=== PATIENT | female | born 1985 | race Caucasian/White ===

== ENCOUNTER 2018-11-28 00:34 | Emergency (ER) | payer MEDICAID ==
[~2018-11-28] VITALS: Ht 157.5 cm; Wt 78.6 kg
[2018-11-28 01:02] VITALS: Ht 157.5 cm; Wt 78.6 kg
[2018-11-28] MEDS ORDERED: BELLADONNA/PHENOBARBITAL TAB PO STA (02:38)
[2018-11-28] MEDS ORDERED: LIDOCAINE/MYLANTA 40 ML BTL PO STA (02:38)
[2018-11-28] MEDS ORDERED: FAMOTIDINE 20 MG TAB PO STA (02:38)
[2018-11-28] MEDS ORDERED: ONDANSETRON (ODT) 4 MG TAB ODT STA (02:38)
--- NOTE | 2018-11-28 03:35 | ERD ---
ER Documentation Chief Complaint Chief Complaint EPIGASTRIC PAIN WITH N/V X 2 DAYS HPI This is a 33-year-old female with a past medical history of diabetes who is presenting with 2 days of intermittent waxing and waning burning sharp moderate epigastric pain, exacerbated by eating and drinking with episodes of nausea. The patient reports vomiting up her food when attempting to eat over the last 1- 2 days. The patient does not endorse any other abdominal pain or discomfort. She denies any dysuria or hematuria or urgency or frequency. She denies any changes to bowel movements. She has not had any black or bloody or tarry stools. She has not had any constipation or diarrhea. She does not believe she could be . She denies any vaginal discharge or bleeding or burning or pain. She does not believe she could have a sexually transmitted infection. The patient denies feeling sick recently. The patient denies fever or chills. The patient has had no headache or vision changes. The patient does not endorse neck or back pain. The patient denies lightheadedness or dizziness. The patient has had no chest pain or trouble breathing. The patient has had no focal deficits. The patient has had no weakness or numbness or tingling to the face or extremities. ROS All systems reviewed and are negative except as per history of present illness. Medications Home Meds Active Scripts Ondansetron Hcl* (Zofran*) 8 Mg Tablet, 8 MG PO Q6H PRN for NAUSEA AND OR VOMITING, #20 TAB Prov:SAMUEL HAMLIN MD 11/28/18 Famotidine* (Pepcid*) 20 Mg Tablet, 20 MG PO BID for 14 Days, TAB Prov:SAMUEL HAMLIN MD 11/28/18 Allergies Allergies: Coded Allergies: No Known Allergy (Unverified , 12/12/14) PMhx/Soc History of Surgery: Yes () Anesthesia Reaction: No Hx Neurological Disorder: No Hx Respiratory Disorders: No Hx Cardiac Disorders: Yes (Diabetes) Hx Psychiatric Problems: No Hx Miscellaneous Medical Probl: No Hx Alcohol Use: No Hx Substance Use: No FmHx Family History: diabetes Physical Exam Vitals Vital Signs Date Temp Pulse Resp B/P (MAP) Pulse Ox O2 O2 Flow FiO2 Time Delivery Rate 11/28/18 98.2 70 16 126/49 99 Room Air 04:15 (74) 11/28/18 99.6 81 18 175/80 96 01:02 (111) Physical Exam Const: No apparent distress, well-developed, well-nourished Head: Normocephalic, Atraumatic Eyes: Normal Conjunctiva. Extraocular movements intact. Pupils equal, round and reactive to light ENT: Normal External Ears, Nose and Mouth. Neck: Full range of motion. No meningismus. Resp: Clear to auscultation bilaterally, No wheezes, rales or rhonchi Cardio: Regular rate and rhythm. No murmurs, rubs or gallops Abd: Soft, non distended. Mild epigastric tenderness. Normal bowel sounds Skin: No petechiae or rashes Back: No midline tenderness. No CVA tenderness Ext: No cyanosis, or edema Neur: Awake and alert, oriented 4. Cranial nerves intact. No facial droop. Normal strength, sensation and coordination. Psych: Normal Mood and Affect Results 24 hrs Laboratory Tests Test 11/28/18 03:42 POC Beta HCG, Qualitative NEGATIVE Current Medications Medications Dose Sig/Ashley Start Time Status Last (Trade) Ordered Route PRN Stop Time Admin Dose Reason Admin Famotidine 20 mg ONCE STAT 11/28/18 DC 11/28/18 (Pepcid) PO 02:38 02:52 11/28/18 02:40 40 ml ONCE STAT 11/28/18 DC 11/28/18 Miscellaneous PO 02:38 02:52 Medication 11/28/18 02:40 (Gi Cocktail (2)) Belladonna/ 2 tab ONCE STAT 11/28/18 DC 11/28/18 Phenobarbital PO 02:38 02:52 () 11/28/18 02:40 Ondansetron 8 mg ONCE STAT 11/28/18 DC 11/28/18 HCl (Zofran ODT 02:38 02:52 Odt) 11/28/18 02:40 650 mg ONCE ONCE 11/28/18 DC 11/28/18 Acetaminophen PO 04:00 03:45 (Tylenol 11/28/18 04:01 Tab) Procedures/MDM MDM The patient's presentation warrants further investigation. Previous medical records, if available, were reviewed. LABS The patient's laboratory testing was obtained and reviewed. No emergent treatment was required unless described below. HCG: Negative IMAGING US RUQ FINDINGS: The pancreas was not visualized due to overlying bowel gas. No evidence of cholelithiasis gallbladder wall thickening or pericholecystic fluid. Common bile duct normal limits in size maximal transverse diameter 3.46 mm. No evidence of intrahepatic biliary ductal dilation. Liver normal in size maximal sagittal mention 15.01 cm. Liver parenchymal echogenicity is homogeneous without focal lesions. Right kidney normal in size measuring 10.92 cm maximal sagittal mention. Normal right renal parenchymal echogenicity without hydronephrosis, intra renal mass or calculus. IMPRESSION: 1. Unremarkable gallbladder without biliary ductal dilation. 2. Unremarkable liver and right kidney. 3. Nonvisualization of the pancreas due to overlying bowel gas. Electronically viewed and signed by Physician Tej on 11/28/2018 05:09 TREATMENT/DISPOSITION The patient presents with mild epigastric pain and nausea. I do have high suspicion for PUD versus GERD versus gastritis. This has happened in the past. The patient was treated with Pepcid, Zofran and a GI cocktail with some improvement of her symptoms. The patient was technically not febrile, but her temperature was slightly elevated. The patient's symptoms could also potentially be related to gastroenteritis, though her pain is isolated to the epigastrium. The patient does not have any evidence of peritonitis. The patient has not had any hematemesis. She does not endorse any GI bleeding. I have low suspicion for esophageal tear, Adele-Singer tear, Boerhaave syndrome or other viscus perforation. The patient does not have clinical symptoms concerning for mesenteric ischemia or ischemic colitis. The patient does not have any vaginal complaints. I have low suspicion for an STI, PID, TOA, ectopic , ovarian torsion. The patient does not have right upper quadrant tenderness, but gallstones could present with epigastric pain. I did have a right upper quadrant ultrasound completed that did not reveal evidence of gallstones or cholecystitis. I have low suspicion for biliary colic. The patient does not have left upper quadrant tenderness. I have low suspicion for pancreatitis. The patient does not have any right lower quadrant tenderness, or periumbilical tenderness. I have low suspicion for appendicitis. The patient does not have suprapubic tenderness. I have decreased suspicion for cystitis. The patient do es not have any left lower quadrant tenderness, and I have low suspicion for diverticulosis or diverticulitis. The patient does not have any flank tenderness. The patient does not have gross hematuria. I have decreased suspicion for nephrolithiasis or renal colic. The patient does not have any palpable pulsatile mass or severe abdominal pain radiating to the back. I have low suspicion for aortic aneurysm, dissection or rupture. DISCHARGE Upon reevaluation of the patient, symptoms have improved. No emergent diagnoses were identified. At this time, I feel that the patient stable for discharge. The patient was instructed to follow-up with a primary care physician in 1-3 days. The patient will be given strict precautions with which to return to the emergency department. Prescriptions: Cassi Lin The patient's blood pressure was elevated at greater than 120/80 while in the e mergency department. The patient was otherwise stable with no evidence of hypertensive urgency or emergency. The patient does not require admission for blood pressure control. I have discussed with the patient the risks of hypertension. I have instructed the patient to return to the ER for any new or worsening symptoms including chest pain, shortness of breath, headache, blurred vision, confusion, nausea, vomiting or LOC. I have advised the patient to follow up with the primary care physician for outpatient monitoring and treatment for hypertension in 1-3 days. Disclaimer: Inadvertent spelling and grammatical errors are likely due to EHR/dictation software use and do not reflect on the overall quality of patient care. Note that the electronic time recorded on this note does not necessarily reflect the actual time of the patient encounter. Departure Diagnosis: Primary Impression: Epigastric pain Additional Impression: Nausea & vomiting Vomiting type: unspecified Vomiting Intractability: non-intractable Qualified Codes: R11.2 - Nausea with vomiting, unspecified Condition: Stable Patient Instructions: Epigastric Pain (Uncertain Cause), Nausea and Vomiting- Adult Additional Instructions: Thank you for for coming to [facility] for your care today. Please ask your nurse or provider if you have questions about your care today and do not leave until all your questions have been answered. Please use any medications given as directed and follow-up with your doctor (or the doctor you were referred to) in the next 1-3 days. If you do not have a primary care doctor you may follow up at the [facility] or [facility] (listed below). You may also use motrin and tylenol as needed for fever and/or pain unless instructed otherwise by your provider or nurse. Indications for more urgent follow-up have been discussed, but you may return to the Emergency Department at ANY time for any worrisome or worsening symptoms. If you have abdominal pain, please know that no test or exam you received is perfect and you should follow up within 8 hours for continued pain. If you had any imaging studies today, such as an X-Ray or CT Scan, these studies will be reviewed later by a radiologist. You will be called if there are important findings that were not identified today, so make sure the contact in formation you provided at registration is correct. If you received any narcotic pain control medicine today, such as Vicodin, M orphine or Dilaudid, your coordination and judgment may be affected for a number of hours. Please do not drive or operate heavy machinery, and you may want someone to assist you at home. If you were given a prescription for narcotic medication, be aware that it is very addictive- use sparingly and only if necessary. PLEASE SEEK FURTHER EVALUATION AND MANAGEMENT AT YOUR DOCTORS OFFICE WITHIN THE NEXT 1-3 DAYS. IT IS YOUR RESPONSIBILITY TO MAKE AN APPOINTMENT FOR FOLOW-UP CARE. IF YOU HAVE A PRIMARY DOCTOR, PLEASE CALL THEIR OFFICE TO SCHEDULE AN APPOINTMENT FOR FOLLOW UP. IF YOU DO NOT HAVE A PRIMARY DOCTOR YOU CAN CALL OUR PHYSICIAN REFERRAL HOTLINE AT IF YOU CAN NOT AFFORD TO SEE A PHYSICIAN YOU CAN CHOSE FROM THE FOLLOWING [facility] CLINICS: [facility] [address] [facility]. [facility] [address] [address] [facility] [facility] [address] [facility] [address] [facility]. [facility]. [address] SAMUEL DURANT MD Nov 28, 2018 03:35
[2018-11-28] MEDS ORDERED: ONDA8TAB9 PO (03:36)
[2018-11-28] MEDS ORDERED: FAMO-96 PO (03:36)
[2018-11-28] MEDS ORDERED: ACETAMINOPHEN 325 MG TAB PO ONE (04:00)
[2018-11-28 05:35] VITALS: BP 126/65; PULSE 71; RESP 15
== END 2018-11-28 05:35 | disposition home or self-care (01) ==
LOC: FTE 00:34 → E/R 05:35
DX: R10.13 Epigastric pain (principal); R11.2 Nausea with vomiting, unspecified; E11.9 Type 2 diabetes mellitus without complications
CPT/HCPCS: 76705; 81025; Z7502; Z7610

== ENCOUNTER 2018-12-22 10:59 | Emergency (ER) | payer MEDICAID ==
[~2018-12-22] VITALS: Ht 162.6 cm; Wt 76.7 kg
[~2018-12-22 10:59] MED LIST: FAMO-96 PO; ONDA8TAB9 PO
[2018-12-22 11:06] VITALS: BP 139/65; PULSE 67; RESP 18; Ht 162.6 cm; Wt 76.7 kg
[2018-12-22] MEDS ORDERED: LIDOCAINE/MYLANTA 40 ML BTL PO ONE (12:30)
[2018-12-22] MEDS ORDERED: INSULIN LISPRO 100 UNIT/ML VIAL SC STA (13:38)
[2018-12-22] MEDS ORDERED: FAMO-96 PO (15:25)
--- NOTE | 2018-12-22 15:34 | ERD ---
ER Documentation Chief Complaint Chief Complaint AP X 1 DAY EPIGASTRIC X 1 DAY 04/13 HPI Patient is a 33-year-old female with past medical history of DM type II, presents the ER for concerns of epigastric pain times 1 day. She describes the pain to be burning in nature. She denies any nausea, vomiting, abdominal pain or diarrhea. She states she does also have back pain. She describes her pain to be generalized throughout her back. She denies any falls or trauma. She denies any associated saddle anesthesia, urine incontinence or stool incontinence. Patient denies any chest pain or shortness of breath. Patient states her symptoms started yesterday after eating in and out hamburger. No recent travel. Patient denies any fevers or chills. Patient denies any urinary symptoms. Patient states she was given a medication when she had similar symptoms here last month and those medications did help. Upon chart review it was noted the patient was given a GI cocktail. ROS All systems reviewed and are negative except as per history of present illness. Medications Home Meds Active Scripts Famotidine* (Pepcid*) 20 Mg Tablet, 20 MG PO BID for 30 Days, TAB Prov:JACOB COTTO PA-C 12/22/18 Ondansetron Hcl* (Zofran*) 8 Mg Tablet, 8 MG PO Q6H PRN for NAUSEA AND OR VOMITING, #20 TAB Prov:SAMUEL HAMLIN MD 11/28/18 Famotidine* (Pepcid*) 20 Mg Tablet, 20 MG PO BID for 14 Days, TAB Prov:SAMUEL HAMLIN MD 11/28/18 Allergies Allergies: Coded Allergies: No Known Allergy (Unverified , 12/22/18) PMhx/Soc History of Surgery: Yes () Anesthesia Reaction: No Hx Neurological Disorder: No Hx Respiratory Disorders: No Hx Cardiac Disorders: Yes (Diabetes) Hx Psychiatric Problems: No Hx Miscellaneous Medical Probl: No Hx Alcohol Use: No Hx Substance Use: No Hx Tobacco Use: No Smoking Status: Never smoker FmHx Family History: diabetes Physical Exam Vitals Vital Signs Date Temp Pulse Resp B/P (MAP) Pulse Ox O2 O2 Flow FiO2 Time Delivery Rate 12/22/18 98.4 67 18 139/65 98 11:06 (89) Physical Exam GENERAL: Well-developed, well-nourished female. Appears in no acute distress. HEAD: Normocephalic, atraumatic. EYES: Pupils are equally reactive bilaterally. EOMs grossly intact. No conjunctival erythema. ENT: Moist mucous membranes. No uvula deviation. No kissing tonsils. NECK: Supple. No meningismus. Normal range of motion of the neck. LUNG: Clear to auscultation bilaterally. No rhonchi, wheezing, rales or coarse breath sounds. HEART: Regular rate and rhythm. No murmurs, rubs or gallops. ABDOMEN: No scars, ecchymosis or rashes noted. Soft and nondistended. Positive bowel sounds in all four quadrants. No rebound tenderness, no guarding. (-) McBurney's point tenderness. No CVA tenderness. EXTREMITIES: Equal pulses bilaterally. No peripheral clubbing, cyanosis or edema. No unilateral leg swelling. NEUROLOGIC: Alert and oriented. Moving all four extremities without any difficulty. Normal speech. Steady gait. SKIN: Normal color. Warm and dry. No rashes or lesions. Result Diagram: 12/22/18 1232 12/22/18 1232 Results 24 hrs Laboratory Tests Test 12/22/18 12:32 12/22/18 12:43 12/22/18 12:46 12/22/18 14:02 White Blood Count 9.7 10^3/ul Red Blood Count 4.76 10^6/ul Hemoglobin 14.8 g/dl Hematocrit 41.5 % Mean Corpuscular 87.2 fl Volume Mean Corpuscular 31.1 pg Hemoglobin Mean Corpuscular 35.7 g/dl Hemoglobin Concent Red Cell 11.9 % Distribution Width Platelet Count 249 10^3/UL Mean Platelet 9.8 fl Volume Immature 0.400 % Granulocytes % Neutrophils % 61.4 % Lymphocytes % 31.6 % Monocytes % 4.8 % Eosinophils % 1.1 % Basophils % 0.7 % Nucleated Red Blood 0.0 /100WBC Cells % Immature 0.040 10^3/ul Granulocytes # Neutrophils # 5.9 10^3/ul Lymphocytes # 3.1 10^3/ul Monocytes # 0.5 10^3/ul Eosinophils # 0.1 10^3/ul Basophils # 0.1 10^3/ul Nucleated Red Blood 0.0 10^3/ul Cells # Sodium Level 136 mmol/L Potassium Level 4.3 mmol/L Chloride Level 96 mmol/L Carbon Dioxide 29 mmol/L Level Anion Gap 11 Blood Urea Nitrogen 7 mg/dl Creatinine 0.40 mg/dl Est Glomerular > 60 mL/min Filtrat Rate mL/min Glucose Level 329 mg/dl Calcium Level 9.9 mg/dl Total Bilirubin 1.2 mg/dl Direct Bilirubin 0.00 mg/dl Indirect Bilirubin 1.2 mg/dl Aspartate Amino 76 IU/L Transf (AST/SGOT) Alanine 187 IU/L Aminotransferase (A LT/SGPT) Alkaline 205 IU/L Phosphatase Total Protein 7.5 g/dl Albumin 4.0 g/dl Globulin 3.50 g/dl Albumin/Globulin 1.14 Ratio Lipase 130 U/L Bedside Urine pH 7.0 (LAB) Bedside Urine Negative Protein (LAB) Bedside Urine 0.50% Glucose (UA) Bedside Urine Negative Ketones (LAB) Bedside Urine Blood Negative Bedside Urine Negative Nitrite (LAB) Bedside Urine Negative Leukocyte Esterase (L POC Beta HCG, NEGATIVE Qualitative Bedside Glucose 270 mg/dL Current Medications Medications Dose Sig/Ashley Start Time Status Last (Trade) Ordered Route PRN Stop Time Admin Dose Reason Admin 40 ml ONCE ONCE 12/22/18 DC 12/22/18 Miscellaneous PO 12:30 12:31 Medication 12/22/18 12:31 (Gi Cocktail (2)) Insulin 6 unit ONCE STAT 12/22/18 DC Human SC 13:38 Lispro 12/22/18 14:10 (Humalog) Procedures/MDM ED COURSE: The patient was stable throughout ED course. I kept the patient and/or family informed of laboratory and diagnostic imaging results throughout the ED course. DIAGNOSTIC IMAGING: Read by radiologist. DIAGNOSTIC IMAGING REPORT Patient: COREY GALLOWAY : 1985 Age: 33 Sex: F MR #: [id number] DOS: 12/22/18 1302 Ordering MD: JACOB COTTO PA-C Location: [facility] Room/Bed: PROCEDURE: US Abdomen. CLINICAL INDICATION: Abdominal Pain TECHNIQUE: Multiple real-time images were acquired of the patient's abdomen and retroperitoneum utilizing a high resolution transducer. COMPARISON: Abdominal ultrasound November 28, 2018 FINDINGS: The liver is of normal size and contour with no mass or intrahepatic ductal dilatation. There is increased echogenicity of the liver compatible with fatty infiltration. Portal and hepatic vein are patent on color flow Doppler imaging. The common bile duct measures 2.9 millimeter in transverse diameter.No gallstones are identified. Gallbladder wall is not thickened and no abnormal pericholecystic fluid collection is seen. No sonographic Myers's sign was elicited during this exam. There is no ascites. The pancreas is normal with no mass or ductal dilatation. The right kidney measures 11.4 cm in length. No hydronephrosis, calculus or mass is present.. There is no evidence of abdominal aortic aneurysm or caval thrombosis. IMPRESSION: No evidence of cholelithiasis, cholecystitis or biliary obstruction. Fatty liver. .Gerber Hunter MD, MD Date Time Electronically viewed and signed by .Gerber Hunter MD, MD on 12/22/2018 14:57 .A/ CC: JACOB COTTO PA-C [id number] PROCEDURES: None. MEDICATIONS GIVEN: GI cocktail Patient tolerated medication well with no adverse reactions. Patient reported improvement in pain. MEDICAL DECISION MAKING: This is a 33-year-old female presents the ER for concerns of epigastric pain times 1 day. Patient states symptoms started after she eating in and out hamburger last night. Vital signs were reviewed. Patient is afebrile. Blood work was obtained. CBC showed no evidence of systemic infection or severe anemia. CMP showed no evidence of electrolyte abnormalities, severe acidosis, alkalosis, renal failure. Glucose was 229 however bicarb was within normal limits. UA showed no ketones. Low suspicion for DKA. Patient's AST was noted to be 76, ALT 184, alk phos of 205. Lipase showed no evidence of acute pancreatitis. UA showed no evidence of acute infection or hematuria. UA showed positive glucose however no leukocyte esterase or nitrates were noted. Urine test was negative. Gallbladder ultrasound was unremarkable. See formal report above. Upon reexamination, patient did report improvement symptoms after receiving GI cocktail. Patient's glucose was rechecked and noted to be 270. Patient was advised on dietary changes. Patient was advised to monitor glucose levels strictly instructed DM medication compliance advised. Exercise advised. At this time, patient's presentation is most consistent with epigastric pain, hyperglycemia, elevated LFTs. Differential diagnosis included was not limited acute coronary syndrome, AAA, mesenteric ischemia, lower lobe pneumonia, DKA, bowel perforation, cholecystitis, choledocholithiasis, ascending cholangitis, hepatic abscess, pancreatitis, PUD, gastritis, GERD, splenic rupture, diverticulitis, UTI, pyelonephritis, nephrolithiasis, appendicitis, constipation, , ectopic , PID, ovarian torsion or tubo-ovarian abscess. Patient was nontoxic, [id number] prior to discharge. PRESCRIPTIONS: Pepcid DISCHARGE: At this time, patient is stable for discharge and outpatient management. I have instructed the patient to follow-up with his/her primary care physician in 1-2 days. I have instructed the patient to promptly return to the ER at any time for any new or worsening symptoms including increased pain, nausea, vomiting, diarrhea, fever, weakness or LOC. The patient and/or family expressed understanding of and agreement with this plan. All questions were answered. Home care instructions were provided. Disclaimer: Inadvertent spelling and grammatical errors are likely due to EHR /dictation software use and do not reflect on the overall quality of patient care. Also, please note that the electronic time recorded on this note does not necessarily reflect the actual time of the patient encounter. Departure Diagnosis: Primary Impression: Epigastric pain Additional Impressions: Hyperglycemia Elevated LFTs Condition: Fair Patient Instructions: Epigastric Pain (Uncertain Cause) Referrals: [facility] YOU HAVE RECEIVED A MEDICAL SCREENING EXAM AND THE RESULTS INDICATE THAT YOU DO NOT HAVE A CONDITION THAT REQUIRES URGENT TREATMENT IN THE EMERGENCY DEPARTMENT. FURTHER EVALUATION AND TREATMENT OF YOUR CONDITION CAN WAIT UNTIL YOU ARE SEEN IN YOUR DOCTORS OFFICE WITHIN THE NEXT 1-2 DAYS. IT IS YOUR RESPONSIBILITY TO MAKE AN APPOINTMENT FOR FOLOW-UP CARE. IF YOU HAVE A PRIMARY DOCTOR --you should call your primary doctor and schedule an appointment IF YOU DO NOT HAVE A PRIMARY DOCTOR YOU CAN CALL OUR PHYSICIAN REFERRAL HOTLINE AT IF YOU CAN NOT AFFORD TO SEE A PHYSICIAN YOU CAN CHOSE FROM THE FOLLOWING [facility] CLINICS [facility] [address] [facility]. [facility] [address] [facility] [facility] [address] [facility] [facility] [address] [facility] [facility] [address] [facility]. [facility] [address] [facility]. [facility] YOU HAVE RECEIVED A MEDICAL SCREENING EXAM AND THE RESULTS INDICATE THAT YOU DO NOT HAVE A CONDITION THAT REQUIRES URGENT TREATMENT IN THE EMERGENCY DEPARTMENT. FURTHER EVALUATION AND TREATMENT OF YOUR CONDITION CAN WAIT UNTIL YOU ARE SEEN IN YOUR DOCTORS OFFICE WITHIN THE NEXT 1-2 DAYS. IT IS YOUR RESPONSIBILITY TO MAKE AN APPOINTMENT FOR FOLOW-UP CARE. IF YOU HAVE A PRIMARY DOCTOR --you should call your primary doctor and schedule and appointment IF YOU DO NOT HAVE A PRIMARY DOCTOR YOU CAN CALL OUR PHYSICIAN REFERRAL HOTLINE AT . IF YOU CAN NOT AFFORD TO SEE A PHYSICIAN YOU CAN CHOSE FROM THE FOLLOWING [facility] INSTITUTIONS: [facility] [address] [place] [address] [facility] [address] [place] [address] [facility] [address] [place] [address] [facility]ENT [facility]SPECIALTIES Additional Instructions: Call your primary care doctor TOMORROW for an appointment during the next 1-2 days.See the doctor sooner or return here if your condition worsens before your appointment time. JACOB COTTO PA-C Dec 22, 2018 15:34
== END 2018-12-22 15:45 | disposition home or self-care (01) ==
LOC: FTE 10:59
DX: R10.13 Epigastric pain (principal); E11.65 Type 2 diabetes mellitus with hyperglycemia; R94.5 Abnormal results of liver function studies
CPT/HCPCS: 36415; 76705; 80053; 81003; 81025; 82962; 83690; 85025; Z7502; Z7610; J1815

== ENCOUNTER 2018-12-31 03:02 | Emergency (ER) | payer MEDICAID ==
[~2018-12-31] VITALS: Ht 154.9 cm; Wt 76.0 kg
[2018-12-31 03:12] VITALS: BP 122/102; PULSE 68; RESP 18; Ht 154.9 cm; Wt 76.0 kg
[2018-12-31] MEDS ORDERED: LIDOCAINE/MYLANTA 40 ML BTL PO STA (03:16)
[2018-12-31] MEDS ORDERED: FAMOTIDINE 20 MG TAB PO STA (03:16)
--- NOTE | 2018-12-31 04:45 | ERD ---
ER Documentation Chief Complaint Chief Complaint awoken by epigastric pain radiating to back 0100, no n/vd, hx same unk caus HPI This is a 33-year-old female presents for epigastric pain, began at about 1 AM this morning. Describes as burning. The patient was seen here recently for the same pain, on December 22, she had an ultrasound that showed no evidence of gallstones, her LFTs were noted to be elevated, and she was noted to have evidence of fatty liver. She also has a history of diabetes. There are no alleviating or aggravating factors. She has not had a fever. ROS All systems reviewed and are negative except as per history of present illness. Medications Home Meds Active Scripts Famotidine* (Pepcid*) 20 Mg Tablet, 20 MG PO BID for 30 Days, TAB Prov:JACOB COTTO PA-C 12/22/18 Ondansetron Hcl* (Zofran*) 8 Mg Tablet, 8 MG PO Q6H PRN for NAUSEA AND OR VOMITING, #20 TAB Prov:SAMUEL HAMLIN MD 11/28/18 Famotidine* (Pepcid*) 20 Mg Tablet, 20 MG PO BID for 14 Days, TAB Prov:SAMUEL HAMLIN MD 11/28/18 Allergies Allergies: Coded Allergies: No Known Allergy (Unverified , 12/22/18) PMhx/Soc History of Surgery: Yes () Anesthesia Reaction: No Hx Neurological Disorder: No Hx Respiratory Disorders: No Hx Cardiac Disorders: Yes (Diabetes) Hx Psychiatric Problems: No Hx Miscellaneous Medical Probl: No Hx Alcohol Use: No Hx Substance Use: No Hx Tobacco Use: No Smoking Status: Never smoker Physical Exam Vitals Vital Signs Date Temp Pulse Resp B/P (MAP) Pulse Ox O2 O2 Flow FiO2 Time Delivery Rate 12/31/18 98.3 68 18 122/102 100 03:12 (109) Physical Exam Const: No acute distress, well-appearing well-nourished well-hydrated Head: Atraumatic Eyes: Normal Conjunctiva ENT: Normal External Ears, Nose and Mouth. Neck: Full range of motion. No meningismus. Resp: Clear to auscultation bilaterally Cardio: Regular rate and rhythm, no murmurs Abd: Soft, there is mild epigastric tenderness, no rebound or guarding, non distended. Normal bowel sounds Skin: No petechiae or rashes Back: No midline or flank tenderness Ext: No cyanosis, or edema Neur: Awake and alert Psych: Normal Mood and Affect Result Diagram: 12/31/188 12/31/18 0328 Results 24 hrs Laboratory Tests Test 12/31/18 03:19 12/31/18 03:21 12/31/18 03:22 12/31/18 03:28 Bedside Glucose 327 mg/dL Bedside Urine pH 8.0 (LAB) Bedside Urine Negative Protein (LAB) Bedside Urine 0.50% Glucose (UA) Bedside Urine Negative Ketones (LAB) Bedside Urine Negative Blood Bedside Urine Negative Nitrite (LAB) Bedside Urine Negative Leukocyte Esterase (L POC Beta HCG, NEGATIVE Qualitative White Blood Count 9.4 10^3/ul Red Blood Count 4.58 10^6/ul Hemoglobin 14.2 g/dl Hematocrit 39.5 % Mean Corpuscular 86.2 fl Volume Mean Corpuscular 31.0 pg Hemoglobin Mean Corpuscular 35.9 g/dl Hemoglobin Concent Red Cell 12.3 % Distribution Width Platelet Count 183 10^3/UL Mean Platelet 10.0 fl Volume Immature 0.500 % Granulocytes % Neutrophils % 46.9 % Lymphocytes % 42.9 % Monocytes % 7.0 % Eosinophils % 2.0 % Basophils % 0.7 % Nucleated Red 0.0 /100WBC Blood Cells % Immature 0.050 10^3/ul Granulocytes # Neutrophils # 4.4 10^3/ul Lymphocytes # 4.0 10^3/ul Monocytes # 0.7 10^3/ul Eosinophils # 0.2 10^3/ul Basophils # 0.1 10^3/ul Nucleated Red 0.0 10^3/ul Blood Cells # Urine Color STRAW Urine Clarity CLEAR Urine pH 8.0 Urine Specific 1.022 [place] Urine Ketones TRACE mg/dL Urine Nitrite NEGATIVE mg/dL Urine Bilirubin NEGATIVE mg/dL Urine Urobilinogen NEGATIVE mg/dL Urine Leukocyte NEGATIVE Anila/ul Esterase Urine Hemoglobin NEGATIVE mg/dL Urine Glucose 3+ mg/dL Urine Total NEGATIVE mg/dl Protein Sodium Level 136 mmol/L Potassium Level 3.8 mmol/L Chloride Level 98 mmol/L Carbon Dioxide 29 mmol/L Level Anion Gap 9 Blood Urea 8 mg/dl Nitrogen Creatinine 0.45 mg/dl Est Glomerular > 60 mL/min Filtrat Rate mL/min Glucose Level 315 mg/dl Calcium Level 9.9 mg/dl Total Bilirubin 1.1 mg/dl Direct Bilirubin 0.00 mg/dl Indirect Bilirubin 1.1 mg/dl Aspartate Amino 90 IU/L Transf (AST/SGOT) Alanine 163 IU/L Aminotransferase ( ALT/SGPT) Alkaline 214 IU/L Phosphatase Total Protein 7.2 g/dl Albumin 3.9 g/dl Globulin 3.30 g/dl Albumin/Globulin 1.18 Ratio Lipase 240 U/L Current Medications Medications Dose Sig/Ashley Start Time Status Last (Trade) Ordered Route PRN Stop Time Admin Dose Reason Admin Famotidine 20 mg ONCE STAT 12/31/18 DC 12/31/18 (Pepcid) PO 03:16 03:35 12/31/18 03:18 40 ml ONCE STAT 12/31/18 DC 12/31/18 Miscellaneous PO 03:16 03:35 Medication 12/31/18 03:18 (Gi Cocktail (2)) Procedures/MDM This 33-year-old female presents for recurrent epigastric pain, on exam she has no peritoneal signs, negative Myers sign, her pain is most likely GERD-like in nature, labs were again repeated, showing no leukocytosis and no acute changes. Her LFTs were again elevated, and H. pylori was also ordered, the patient was discharged on Pepcid, in addition to this I recommended starting on Protonix, and advised patient to start this therapy for the time being, if it is not effective, within a month, she will likely need GI referral. Otherwise she has no signs of infection, and no signs of surgical abdomen, she had no evidence of DKA, at discharge the patient was in no distress. EKG: Rate/Rhythm: Normal Sinus Rhythm QRS, ST, T-waves: No changes consistent w/ acute ischemia Impression: No evidence of ischemia or arrhythmia Departure Diagnosis: Primary Impression: Abdominal pain Abdominal location: unspecified location Qualified Codes: R10.9 - Unspecified abdominal pain Condition: Stable JUAN JOSÉ CHANG MD Dec 31, 2018 04:45
[2018-12-31] MEDS ORDERED: KETOROLAC 15 MG INJ IV STA (04:58)
[2018-12-31] MEDS ORDERED: PANT40TA3 PO (04:59)
[2018-12-31] MEDS ORDERED: METF-849 PO (05:34)
== END 2018-12-31 06:14 | disposition home or self-care (01) ==
LOC: E/R 03:02
DX: R10.13 Epigastric pain (principal); E11.9 Type 2 diabetes mellitus without complications
CPT/HCPCS: 80053; 81003; 81025; 82962; 83690; 85025; 93005; J1885; Z7610; 96372

== ENCOUNTER 2019-03-16 03:35 | Emergency (ER) | payer SELFPAY ==
[~2019-03-16] VITALS: Ht 157.5 cm; Wt 73.4 kg
[~2019-03-16 03:35] MED LIST changes: +METF-849 PO; +PANT40TA3 PO
[2019-03-16 03:48] VITALS: BP 106/59; PULSE 85; RESP 18; Ht 157.5 cm; Wt 73.4 kg
== END 2019-03-16 09:17 | disposition left against medical advice (07) ==
LOC: E/R 03:35
DX: Z53.21 Procedure and treatment not carried out due to patient leaving prior to being seen by health care provider (principal)